=== PATIENT | male | born 1965 | race Caucasian/White ===

== ENCOUNTER 2019-10-07 11:36 | Inpatient (IN) ==
[2019-10-07] MEDS ORDERED: ACETAMINOPHEN 325 MG TABLET PO PRN (14:45)
[2019-10-07] MEDS ORDERED: BISACODYL 5 MG TABLET PO PRN (14:45)
[2019-10-07] MEDS ORDERED: KETOROLAC 15 MG/1 ML VIAL IV PRN (14:45)
[2019-10-07] MEDS ORDERED: HYDROmorphone 2 MG/1 ML VIAL IV PRN (14:45)
[2019-10-07] MEDS ORDERED: ONDANSETRON 4 MG/2 ML VIAL IV PRN (14:45)
[2019-10-07] MEDS ORDERED: ALBUTEROL/IPRATROPIUM 3 ML NEB RESP TX PRN (14:45)
[2019-10-07] MEDS ORDERED: HYDROCORTISONE 1% CREAM 28 GM TUBE TOP PRN (14:49)
[2019-10-07] MEDS: ALBUTEROL/IPRATROPIUM 3 ML NEB RESP TX SCH (19:18)
[2019-10-08] MEDS: ALBUTEROL/IPRATROPIUM 3 ML NEB RESP TX SCH ×4 (01:46→19:22)
[2019-10-08 04:19] LABS: Basophils % 0.3 % (0.0-0.8); Eosinophils # 0.1 10*3/uL (0.0-0.87); Eosinophils % 0.8 % (0.00-10.9); Hematocrit 40.5 VOL% (42.0-52.0); Hemoglobin 13.3 GM/DL (14.0-18.0); Immature Granulocytes % 0.4 %; Immature Granulocytes Absolute 0.03 #; Lymphocytes # 1.2 10*3/uL (1.4-4.0); Lymphocytes % 16.7 % (21.2-54.2); Mean Corpuscular HGB Conc 32.8 GM/DL (32-36); Mean Corpuscular Volume 93.3 FL (87-102); Mean Platelet Volume 10.8 FL (9.6-12.0); Monocytes % 13.7 % (1.7-12.7); Neutrophils % 68.1 % (38.7-73.9); Platelet Count 235 T/CUMM (130-400); Red Blood Count 4.34 MC/CUMM (3.8-5.5); Red Cell Distribution Width 13.1 % (9.3-17.3); White Blood Count 7.1 T/CUMM (4-12)
[2019-10-08 04:36] LABS: Osmolality,Calculated 274.7 MOS/KG (273-304)
[2019-10-08] MEDS: ENOXAPARIN 40 MG/0.4 ML SYRINGE SUBCUT SCH (09:10)
[2019-10-08] MEDS: LORATADINE 10 MG TABLET PO SCH (09:10)
[2019-10-08] MEDS: PANTOPRAZOLE 40 MG TABLET PO SCH (09:10)
[2019-10-09] MEDS: ALBUTEROL/IPRATROPIUM 3 ML NEB RESP TX SCH ×4 (01:04→19:22)
[2019-10-09] MEDS: PANTOPRAZOLE 40 MG TABLET PO SCH (09:08)
[2019-10-09] MEDS: LORATADINE 10 MG TABLET PO SCH (09:08)
[2019-10-09] MEDS: ENOXAPARIN 40 MG/0.4 ML SYRINGE SUBCUT SCH (09:08)
[2019-10-10] MEDS: ALBUTEROL/IPRATROPIUM 3 ML NEB RESP TX SCH ×4 (02:50→19:06)
[2019-10-10] MEDS: PANTOPRAZOLE 40 MG TABLET PO SCH (09:35)
[2019-10-10] MEDS: LORATADINE 10 MG TABLET PO SCH (09:35)
[2019-10-10] MEDS: ENOXAPARIN 40 MG/0.4 ML SYRINGE SUBCUT SCH (09:36)
[2019-10-11] MEDS: ALBUTEROL/IPRATROPIUM 3 ML NEB RESP TX SCH ×5 (00:06→19:58)
[2019-10-11] MEDS: ENOXAPARIN 40 MG/0.4 ML SYRINGE SUBCUT SCH (09:07)
[2019-10-11] MEDS: LORATADINE 10 MG TABLET PO SCH (09:08)
[2019-10-11] MEDS: PANTOPRAZOLE 40 MG TABLET PO SCH (09:08)
[2019-10-12] MEDS: ALBUTEROL/IPRATROPIUM 3 ML NEB RESP TX SCH ×3 (00:56→13:27)
[2019-10-12] MEDS: PANTOPRAZOLE 40 MG TABLET PO SCH (10:24)
[2019-10-12] MEDS: ENOXAPARIN 40 MG/0.4 ML SYRINGE SUBCUT SCH (10:24)
[2019-10-12] MEDS: LORATADINE 10 MG TABLET PO SCH (10:24)
[2019-10-12 20:05] VITALS: BP 120/78
== END 2019-10-12 16:52 | DRG 200 ==
LOC: N.ED 11:36 → N.EDINP 14:45 → N.3W 15:18
PROVIDERS: ADMIT Surgery; ATTEND Surgery